=== PATIENT | male | born 1955 | race Two or more races ===

== ENCOUNTER → 2020-01-11 | Day surgery (SDC) | payer MEDICARE, OTHER ==
[2020-01-07 09:59] LABS: BASOPHILS # (AUTO) 0.1 (0.0-0.1); EOSINOPHILS # (AUTO) 0.1 (0.0-0.4); EOSINOPHILS % 1.6 % (0.0-6.0); HEMATOCRIT 45.6 % (38.2-49.6); HEMOGLOBIN 15.4 g/dL (14.0-18.0); LYMPHOCYTES # (AUTO) 2.2 (1.0-3.2); LYMPHOCYTES % 26.1 % (18.0-39.1); MEAN CORPUSCULAR HEMOGLOBIN 30.6 pg (28-32); MEAN CORPUSCULAR HGB CONC 33.8 g/dL (31-35); MEAN CORPUSCULAR VOLUME 90.7 fL (81-99); MONOCYTES # (AUTO) 0.7 (0.2-0.8); MONOCYTES % 7.9 % (4.4-11.3); NEUTROPHILS # (AUTO) 5.3 (2.1-6.9); NEUTROPHILS % 62.9 % (38.7-80.0); PLATELET COUNT 262 x10e3/uL (140-360); RED BLOOD COUNT 5.03 x10e6/uL (4.3-5.7); RED CELL DISTRIBUTION WIDTH 12.5 % (11.7-14.4)
[~2020-01-11] MED LIST: GLIMEPIRIDE2 MG PO; HYOSCYAMINE 0.125 MG TAB ONE; PROPOFOL IV EMULSION 10 MG/ML 20 ML VIAL ONE
[2020-01-11 10:38] VITALS: BP 130/77
--- NOTE | 2020-01-11 10:53 | Operative Report ---
DATE OF PROCEDURE: 01/11/2020 SURGEON: Adi Del Valle MD PROCEDURE: Colonoscopy with polypectomy. INDICATION FOR COLONOSCOPY: Colorectal cancer screening. MEDICATIONS: The patient was done under MAC, please see anesthesiologist's note. PROCEDURE IN DETAIL: With the patient in the left lateral decubitus position, a flexible fiberoptic Olympus colonoscope was inserted into the rectum with ease and advanced all the way to the cecum. An approximately 4 mm sessile polyp was removed per cold snare polypectomy from the cecum. One additional polyp was cold snared from the ascending colon. The transverse grossly appeared to be within normal limits. Three polyps were hot snared from the descending colon and one polypectomy site was hemoclipped. Sigmoid grossly appeared to be within normal limits. The rectum appeared to be within normal limits. The scope was then retroflexed into the distal rectum and small internal hemorrhoids were noted, none of which was actively bleeding. The scope was then straightened out, it was subsequently withdrawn, and the patient tolerated the procedure well. IMPRESSION: 1. Cecal polyp, cold snared. 2. Ascending colon polyp, cold snared. 3. Descending colon polyps x3, hot snared and one polypectomy site hemoclipped. 4. Internal hemorrhoids, none actively bleeding. PLAN: Follow up histology. Initiate high-fiber, low-fat diet. Initiate high-fiber supplement. The patient might benefit from a followup colonoscopy in 3 years. Adi Del Valle MD [facility] – [place]/SOPHIA /[id number] cc: Clarence Mari III, MD
== END | disposition home or self-care (01) ==
LOC: OR 07:58
PROVIDERS: ATTEND Internal Medicine Gastroenterology
DX: Z12.11 Encounter for screening for malignant neoplasm of colon (principal); D12.2 Benign neoplasm of ascending colon; D12.4 Benign neoplasm of descending colon; K64.8 Other hemorrhoids; F41.9 Anxiety disorder, unspecified; R03.0 Elevated blood-pressure reading, without diagnosis of hypertension; E11.9 Type 2 diabetes mellitus without complications; K21.9 Gastro-esophageal reflux disease without esophagitis; Z87.891 Personal history of nicotine dependence; Z01.812 Encounter for preprocedural laboratory examination; Z20.828 Contact with and (suspected) exposure to other viral communicable diseases; Z01.810 Encounter for preprocedural cardiovascular examination; Z79.84 Long term (current) use of oral hypoglycemic drugs
CPT/HCPCS: 36415 ×2; 45385; 82948; 85025; 93005; J2704; U0002; 45378; 45384